=== PATIENT | female | born 1945 | race Caucasian/White ===

== ENCOUNTER → 2017-01-01 | Outpatient (CLI) | payer MEDICARE, BC ==
--- NOTE | 2017-01-01 09:57 | REP ---
UNILATERAL MAMMOGRAM LEFT BREAST: HISTORY: Right breast cancer and mastectomy. COMPARISON: 12/31/2015 as well as multiple other prior studies. Moderate fibroglandular tissue is unchanged in the left breast. No new mass or suspicious clusters of microcalcifications are seen. A metallic clip is again seen at about the 12 o'clock position of the left breast. There are scattered tiny stable calcifications. IMPRESSION: ACR 2 benign stable mammogram left breast in this patient status post right mastectomy. Suggest followup mammogram in 1 year. This mammogram was interpreted with the aid of an FDA-approved computer-aided detection system. The patient states she/he had a clinical breast exam in 11/2016. The patient letter being requested is M1. Signed by Brendon Lundberg MD 01/01/2017 04:41 P
== END ==
LOC: M RAD 08:37
PROVIDERS: ATTEND Family Medicine
DX: Z12.31 Encounter for screening mammogram for malignant neoplasm of breast (principal); Z85.3 Personal history of malignant neoplasm of breast

== ENCOUNTER → 2018-01-03 | Outpatient (CLI) | payer MEDICARE, BC | LOC: M RAD 10:07 | DX: Z12.31 Encounter for screening mammogram for malignant neoplasm of breast (principal) | CPT/HCPCS: 77067 ==

== ENCOUNTER 2018-12-01 12:28 | Day surgery (SDC) | payer MEDICARE, BC ==
[~2018-12-01] VITALS: Ht 160 cm; Wt 66.2 kg
[~2018-12-01 12:28] MED LIST: ATOR1TAB21 PO; BISO10TA3 PO; EQL50TAB2 PO; FISH1000 PO; LISI10TA4 PO; METF10004 PO; MULTCAP PO; OMEP20CA4 PO; VITA-122 PO
[2018-12-01] MEDS ORDERED: PROPOFOL 200 MG/20 ML VIAL As Ordered ONE (12:44)
[2018-12-01] MEDS ORDERED: LIDOCAINE 2% INJ 100 MG/5 ML SDV (FOR ANES.) As Ordered ONE (12:44)
[2018-12-01] MEDS: NS 1,000 ML IV ONE (13:00)
--- NOTE | 2018-12-01 13:36 | ROOR ---
Patient Name: Sandra Moeller Procedure Date: 12/01/2018 1:08 PM Date of : 1945 Age: 73 Room: [facility] Gender: Female Note Status: Finalized Procedure: Colonoscopy Indications: Positive Cologuard test Providers: Tee Morales Jr, MD Referring MD: TD ROSE Requesting Provider: Medicines: Propofol per Anesthesia Complications: No immediate complications. Procedure: Pre-Anesthesia Assessment: - Prior to the procedure, a History and Physical was performed, and patient medications and allergies were reviewed. The patient is competent. The risks and benefits of the procedure and the sedation options and risks were discussed with the patient. All questions were answered and informed consent was obtained. Patient identification and proposed procedure were verified by the physician and the nurse in the pre-procedure area and in the procedure room. Mental Status Examination: alert and oriented. Airway Examination: normal oropharyngeal airway and neck mobility. Respiratory Examination: clear to auscultation. CV Examination: normal. ASA Grade Assessment: II - A patient with mild systemic disease. After reviewing the risks and benefits, the patient was deemed in satisfactory condition to undergo the procedure. The anesthesia plan was to use moderate sedation / analgesia (conscious sedation). Immediately prior to administration of medications, the patient was re-assessed for adequacy to receive sedatives. The heart rate, respiratory rate, oxygen saturations, blood pressure, adequacy of pulmonary ventilation, and response to care were monitored throughout the procedure. The physical status of the patient was re-assessed after the procedure. The Colonoscope was introduced through the anus and advanced to the cecum, identified by appendiceal orifice and ileocecal valve. The colonoscopy was performed without difficulty. The patient tolerated the procedure well. The quality of the bowel preparation was adequate. Findings: The descending colon, transverse colon, ascending colon, cecum, appendiceal orifice and ileocecal valve appeared normal. A few small-mouthed diverticula were found in the sigmoid colon. Five polyps were found in the rectum, recto-sigmoid colon and transverse colon. The polyps were medium in size. These polyps were removed with a hot snare. Resection was complete, but the polyp tissue was only partially retrieved. Non-bleeding external and internal hemorrhoids were found during retroflexion. The hemorrhoids were moderate. Impression: - The descending colon, transverse colon, ascending colon, cecum, appendiceal orifice and ileocecal valve are normal. - Diverticulosis in the sigmoid colon. - Five medium polyps in the rectum, at the recto-sigmoid colon and in the transverse colon, removed with a hot snare. Complete resection. Partial retrieval. - Non-bleeding external and internal hemorrhoids. Recommendation: - Repeat colonoscopy in 3 - 5 years for surveillance based on pathology results. Tee Morales MD Tee Morales Jr, MD 12/01/2018 1:35:50 PM Electronically signed by Tee Morales Jr, MD Number of Addenda: 0 Note Initiated On: 12/01/2018 1:08 PM Estimated Blood Loss: Estimated blood loss: none.
[2018-12-01 14:05] VITALS: BP 133/64
== END 2018-12-01 14:07 | disposition home or self-care (01) ==
LOC: M OPP 12:28
PROVIDERS: ATTEND Surgery
DX: R19.5 Other fecal abnormalities (principal); K64.8 Other hemorrhoids; K62.1 Rectal polyp; D12.7 Benign neoplasm of rectosigmoid junction; D12.3 Benign neoplasm of transverse colon; K57.30 Diverticulosis of large intestine without perforation or abscess without bleeding; Z79.84 Long term (current) use of oral hypoglycemic drugs; F17.210 Nicotine dependence, cigarettes, uncomplicated

== ENCOUNTER → 2019-01-06 | Outpatient (CLI) | payer MEDICARE, BC ==
[~2019-01-06] MED LIST changes: -BISO10TA3 PO; +BISO10TA4 PO; +OMEP1CAP73 PO; -OMEP20CA4 PO
--- NOTE | 2019-01-06 13:35 | REP ---
UNILATERAL MAMMOGRAM, LEFT BREAST WITH 3D TOMOSYNTHESIS: HISTORY: Right breast cancer and mastectomy, 2002. Family history of breast cancer in mother at age 55. MLO and CC views of left breast performed with 3D tomosynthesis. Comparison made with multiple prior exams, most recently 01/03/2018. There is no change in the parenchymal pattern of the left breast with moderate heterogeneous fibroglandular tissue again noted. There is no new mass or architectural distortion. Scattered calcifications in the left breast are stable. Metallic clip is again seen in the upper left breast from a prior benign stereotactic biopsy in 2014. IMPRESSION: BIRADS 1: BI-RADS/ACR category 1 mammogram. Negative Mammogram. ACR 1 negative mammogram left breast in this patient status post right mastectomy. Suggest followup mammogram in 1 year. This mammogram was interpreted with the aid of an FDA-approved computer-aided detection system. The patient states she/he had a clinical breast exam in 12/2018. The patient letter being requested is M1. Electronically Signed by Brendon Lundberg MD 01/08/2019 10:51 P
== END ==
LOC: M RAD 12:32
PROVIDERS: ATTEND Physician Assistant
DX: Z12.31 Encounter for screening mammogram for malignant neoplasm of breast (principal)

== ENCOUNTER → 2020-01-09 | Outpatient (CLI) | payer MEDICARE, BC ==
--- NOTE | 2020-01-09 10:38 | REPMRS ---
Patient History The patient states she has not had a clinical breast exam in over a year. Family history of breast cancer at age 55 in mother, unknown cancer at age 23 in mother, endometrial cancer at age 50 in mother, unknown cancer at age 51 in sister. Benign radio exam breast specimen of the left breast, July 09, 2014. Benign stereotatic loc for ea lesion of the left breast, July 09, 2014. Malignant mastectomy of the right breast, 2001. Chemotherapy, 2001. Took hormonal contraceptives for 20 years. Took unspecified hormones for 1 year. Digital Woman Screen Mammo: January 09, 2020 - Exam #: [id number] Bilateral CC and MLO view(s) were taken. Technologist: Rupal Parekh, Technologist Prior study comparison: January 06, 2019, bilateral digital mammo screening bilat, performed at [facility]. January 03, 2018, bilateral digital mammo screening bilat, performed at [facility]. January 01, 2017, bilateral digital mammo screening bilat, performed at [facility]. May 22, 2014, left breast digital mammo diagnostic unilateral, performed at [facility]. FINDINGS: There are scattered fibroglandular densities. There has been no change in the appearance of the left breast parenchyma in the interval since the prior examination. No new mass, architectural distortion, or microcalcific grouping has developed. The previously biopsied grouping of microcalcifications shows an increase in number of calcifications. However this grouping was sampled in 2014 with benign histologic result. No suspicious finding. 3-D tomosynthesis shows no additional findings. Assessment: BI-RADS/ACR category 2 mammogram. Benign Findings. Recommendation Routine screening mammogram in 1 year. This patient's Lifetime Breast Cancer RIsk is estimated at %. This mammogram was interpreted with the aid of an FDA-approved computer-aided dectection system. Electronically Signed By: Rob Taylor MD 01/09/20 [id number]
== END ==
LOC: M WHC 07:48
PROVIDERS: ATTEND Physician Assistant
DX: Z12.31 Encounter for screening mammogram for malignant neoplasm of breast (principal); Z85.3 Personal history of malignant neoplasm of breast

== ENCOUNTER → 2020-02-06 | Outpatient (CLI) | payer MEDICARE, BC ==
--- NOTE | 2020-02-16 07:11 | REP ---
LEFT WRIST SERIES HISTORY: Fall with pain. FINDINGS: Four views of the left wrist were performed. There was no evidence of acute fracture, dislocation, or intrinsic bone disease. Joint spaces are unremarkable. IMPRESSION: No evidence of fracture or dislocation. MTDD
--- NOTE | 2020-02-16 07:15 | REP ---
BILATERAL THUMB SERIES: EIGHT VIEWS HISTORY: Contusion of both thumbs. Injury in a fall one week ago, persistent pain. FINDINGS: Four views of each thumb are presented. These demonstrate no evidence of fracture or subluxation. Bones, joints, and soft tissues are unremarkable. There is minimal osteoarthritic change. IMPRESSION: Minimal osteoarthritic changes. No fracture or other acute bony abnormality. MTDD
== END ==
LOC: M WUC 09:38
PROVIDERS: ATTEND Physician Assistant
DX: S60.212A Contusion of left wrist, initial encounter (principal); S60.012A Contusion of left thumb without damage to nail, initial encounter; S60.011A Contusion of right thumb without damage to nail, initial encounter; X58.XXXA Exposure to other specified factors, initial encounter; Y92.9 Unspecified place or not applicable

== ENCOUNTER → 2021-01-10 | Outpatient (CLI) | payer MEDICARE, BC ==
[~2021-01-10] MED LIST changes: +LISI10TA22 PO; -LISI10TA4 PO
--- NOTE | 2021-01-10 12:18 | REPMRS ---
Patient History The patient states she has not had a clinical breast exam in over a year. Patient is postmenopausal, has history of cancer in the right breast at age 55, and had previous chemotherapy at age 55. Family history of breast cancer at age 55 in mother, unknown cancer at age 23 in mother, endometrial cancer at age 50 in mother, unknown cancer at age 51 in sister. Benign radio exam breast specimen of the left breast, July 09, 2014. Benign stereotatic loc for ea lesion of the left breast, July 09, 2014. Malignant mastectomy of the right breast, 2001. Chemotherapy, 2001. Took hormonal contraceptives for 20 years. Took unspecified hormones for 1 year. Patient states no breast complaints today. Patient has signed MRS History Sheet. Digital Woman Screen Mammo: January 10, 2021 - Exam #: [id number] Bilateral CC and MLO view(s) were taken. Technologist: Razia Cary, Technologist Prior study comparison: January 09, 2020, bilateral digital woman screen mammo performed at [facility]. January 06, 2019, bilateral digital mammo screening bilat, performed at [facility]. January 03, 2018, bilateral digital mammo screening bilat, performed at [facility]. May 22, 2014, left breast digital mammo diagnostic unilateral, performed at [facility]. FINDINGS: There are scattered fibroglandular densities. The previously noted grouping of calcifications in the left breast is again seen unchanged from recent mammography. A needle biopsy marker clip is seen just superior to this. Prior sampling in 2014. There has been no change in the appearance of the left breast parenchyma in the interval since the prior examination. No mass, architectural distortion, or microcalcific grouping has developed. No suspicious finding. 3-D tomosynthesis shows no additional findings. Assessment: BI-RADS/ACR category 2 mammogram. Benign Findings. Recommendation Routine screening mammogram in 1 year. This mammogram was interpreted with the aid of an FDA-approved computer-aided dectection system. Electronically Signed By: Rob Taylor MD 01/10/21 121
== END ==
LOC: M WHC 11:15
PROVIDERS: ATTEND Physician Assistant
DX: Z12.31 Encounter for screening mammogram for malignant neoplasm of breast (principal)

== ENCOUNTER → 2021-09-02 | Outpatient (CLI) | payer MEDICARE, BC ==
[~2021-09-02] MED LIST changes: -BISO10TA4 PO; +BISO1TAB19 PO
== END ==
LOC: M SOG 15:58
PROVIDERS: ATTEND Physician Assistant
DX: M79.645 Pain in left finger(s) (principal)

== ENCOUNTER → 2021-10-03 | Outpatient (CLI) | payer MEDICARE, BC | LOC: M LABSMTC 09:17 | PROVIDERS: ATTEND Anesthesiology | DX: Z01.812 Encounter for preprocedural laboratory examination (principal); Z20.822 Contact with and (suspected) exposure to COVID-19 ==

== ENCOUNTER → 2021-10-10 | Outpatient (CLI) | payer MEDICARE, BC | LOC: M LABSMTC 10:15 | PROVIDERS: ATTEND Anesthesiology | DX: Z01.812 Encounter for preprocedural laboratory examination (principal); Z20.822 Contact with and (suspected) exposure to COVID-19 ==

== ENCOUNTER 2021-10-15 07:48 | Day surgery (SDC) | payer MEDICARE, BC ==
[~2021-10-15] VITALS: Ht 160 cm; Wt 68.0 kg
[~2021-10-15 07:48] MED LIST changes: +LIDOCAINE W/EPINEPHRINE 1% 20ML VIAL XX ONE; +SODIUM BICARBONATE 8.4% INJ 50MEQ 50 ML VIAL XX ONE
[2021-10-15] MEDS ORDERED: BACITRACIN OINTMENT 30GM TUBE As Ordered ONE (09:55)
[2021-10-15 10:35] VITALS: BP 147/63
== END 2021-10-15 10:50 | disposition home or self-care (01) ==
LOC: M SDC 07:48
PROVIDERS: ATTEND Orthopaedic Surgery Hand Surgery
DX: M65.4 Radial styloid tenosynovitis [de Quervain] (principal); I10 Essential (primary) hypertension; E11.9 Type 2 diabetes mellitus without complications; E78.00 Pure hypercholesterolemia, unspecified; Z85.3 Personal history of malignant neoplasm of breast; Z90.11 Acquired absence of right breast and nipple; F17.210 Nicotine dependence, cigarettes, uncomplicated; Z79.899 Other long term (current) drug therapy; Z79.84 Long term (current) use of oral hypoglycemic drugs

== ENCOUNTER → 2022-01-12 | Outpatient (CLI) | payer MEDICARE, BC ==
[~2022-01-12] MED LIST changes: -LIDOCAINE W/EPINEPHRINE 1% 20ML VIAL XX ONE; +OMEP-173 PO; -SODIUM BICARBONATE 8.4% INJ 50MEQ 50 ML VIAL XX ONE; +VITMTA PO
== END ==
LOC: M LABSMTC 10:16
PROVIDERS: ATTEND Anesthesiology
DX: Z01.818 Encounter for other preprocedural examination (principal); Z11.52 Encounter for screening for COVID-19

== ENCOUNTER → 2022-01-13 | Outpatient (CLI) | payer MEDICARE, BC | LOC: M WHC 10:19 | PROVIDERS: ATTEND Physician Assistant | DX: Z12.31 Encounter for screening mammogram for malignant neoplasm of breast (principal); Z85.3 Personal history of malignant neoplasm of breast; Z90.11 Acquired absence of right breast and nipple ==

== ENCOUNTER 2022-01-16 10:44 | Day surgery (SDC) | payer MEDICARE, BC ==
[~2022-01-16] VITALS: Ht 160 cm; Wt 65.3 kg
[~2022-01-16 10:44] MED LIST changes: +NS 1,000 ML IV ONE
[2022-01-16] MEDS ORDERED: propofoL 200 MG/20 ML VIAL As Ordered ONE ×2 (12:19→12:38)
[2022-01-16] MEDS ORDERED: LIDOCAINE 2% 100MG/5ML SDV (FOR ANES.) As Ordered ONE (12:19)
[2022-01-16 13:13] VITALS: BP 121/58
== END 2022-01-16 13:25 | disposition home or self-care (01) ==
LOC: M OPP 10:44
PROVIDERS: ATTEND Surgery
DX: Z12.11 Encounter for screening for malignant neoplasm of colon (principal); Z86.010 Personal history of colon polyps; K63.5 Polyp of colon; K57.30 Diverticulosis of large intestine without perforation or abscess without bleeding; I10 Essential (primary) hypertension; E78.00 Pure hypercholesterolemia, unspecified; E11.9 Type 2 diabetes mellitus without complications; F17.200 Nicotine dependence, unspecified, uncomplicated; Z80.3 Family history of malignant neoplasm of breast; Z80.49 Family history of malignant neoplasm of other genital organs; Z80.51 Family history of malignant neoplasm of kidney; Z85.51 Personal history of malignant neoplasm of bladder; Z92.21 Personal history of antineoplastic chemotherapy; Z79.02 Long term (current) use of antithrombotics/antiplatelets; Z79.84 Long term (current) use of oral hypoglycemic drugs; Z79.899 Other long term (current) drug therapy; Z88.8 Allergy status to other drugs, medicaments and biological substances

== ENCOUNTER → 2023-01-15 | Outpatient (CLI) | payer MEDICARE, BC ==
[~2023-01-15] MED LIST changes: -NS 1,000 ML IV ONE
== END ==
LOC: M WHC 11:23
PROVIDERS: ATTEND Physician Assistant
DX: Z12.31 Encounter for screening mammogram for malignant neoplasm of breast (principal); Z85.3 Personal history of malignant neoplasm of breast

== ENCOUNTER 2023-06-11 09:03 | Emergency (ER) | payer MEDICARE, BC ==
[~2023-06-11] VITALS: Ht 160 cm; Wt 73.3 kg
[2023-06-11] MEDS ORDERED: LIDOCAINE W/EPINEPHRINE 1% 20ML VIAL SC ONE (11:30)
[2023-06-11 11:47] LABS: BASO % 0.3 % (0.0-1.0); EOS # 0.1 10^3/uL (0.0-0.5); EOS % 0.6 % (0.0-3.0); HEMATOCRIT 33.9 % (36.0-47.0); HEMOGLOBIN 11.6 g/dl (12.0-15.5); LYMPH % 16.7 % (24.0-44.0); MEAN CORPUSCULAR HEMOGLOBIN 32.2 pg (27.0-33.0); MEAN CORPUSCULAR HGB CONC 34.2 g/dl (32.0-36.5); MEAN CORPUSCULAR VOLUME 94.2 fl (80.0-96.0); MONO # 0.8 10^3/uL (0.0-0.8); MONO % 6.4 % (2.0-8.0); NEUTROPHILS # 8.9 10^3/uL (1.5-8.5); NEUTROPHILS % 75.7 % (36.0-66.0); PLATELET COUNT, AUTOMATED 346 10^3/uL (150-450); WHITE BLOOD COUNT 11.8 10^3/uL (4.0-10.0)
[2023-06-11] MEDS ORDERED: DOXY-443 PO ×2 (11:55→12:56)
[2023-06-11 12:10] VITALS: BP 153/64; TEMP 96.8; O2SAT 99
[2023-06-11 12:19] LABS: BLOOD UREA NITROGEN 12 MG/DL (9-23); CALCIUM LEVEL 9.1 MG/DL (8.3-10.6); CARBON DIOXIDE LEVEL 28 MMOL/L (20-31); CHLORIDE LEVEL 103 MMOL/L (98-107); CREATININE FOR GFR 0.82 MG/DL (0.55-1.30); GLOMERULAR FILTRATION RATE > 60.0 (>39); GLUCOSE, FASTING 138 MG/DL (74-106); POTASSIUM SERUM 4.7 MMOL/L (3.5-5.1); SODIUM LEVEL 137 MMOL/L (136-145)
== END 2023-06-11 12:11 | disposition home or self-care (01) ==
LOC: M ED 09:03
DX: L02.214 Cutaneous abscess of groin (principal); L03.314 Cellulitis of groin; E11.9 Type 2 diabetes mellitus without complications; I10 Essential (primary) hypertension; E78.5 Hyperlipidemia, unspecified; K21.9 Gastro-esophageal reflux disease without esophagitis; Z79.84 Long term (current) use of oral hypoglycemic drugs; Z79.899 Other long term (current) drug therapy

== ENCOUNTER → 2023-07-27 | Outpatient (CLI) | payer MEDICARE, BC ==
[~2023-07-27] MED LIST changes: +DOXY-443 PO
== END ==
LOC: M WUC 11:13
PROVIDERS: ATTEND Physician Assistant
DX: M54.50 Low back pain, unspecified (principal)

== ENCOUNTER → 2024-01-20 | Outpatient (CLI) | payer MEDICARE, BC ==
[~2024-01-20] MED LIST changes: +DOXY-323 PO; -DOXY-443 PO
== END ==
LOC: M WHC 13:55
PROVIDERS: ATTEND Physician Assistant
DX: Z12.31 Encounter for screening mammogram for malignant neoplasm of breast (principal); Z85.3 Personal history of malignant neoplasm of breast
CPT/HCPCS: 77067; G0279

== ENCOUNTER → 2025-01-22 | Outpatient (CLI) | payer MEDICARE, BC ==
[~2025-01-22] MED LIST changes: -DOXY-323 PO; +DOXY-441 PO; -EQL50TAB2 PO; +VITA1TAB82 PO
== END ==
LOC: M WHC 11:26
PROVIDERS: ATTEND Physician Assistant
DX: Z12.31 Encounter for screening mammogram for malignant neoplasm of breast (principal); R92.2 Inconclusive mammogram; Z85.3 Personal history of malignant neoplasm of breast; Z90.11 Acquired absence of right breast and nipple
CPT/HCPCS: 77067; G0279

== ENCOUNTER → 2025-02-01 | Outpatient (CLI) | payer MEDICARE, BC | LOC: M WHC 10:20 | PROVIDERS: ATTEND Physician Assistant | DX: Z85.3 Personal history of malignant neoplasm of breast (principal); Z12.31 Encounter for screening mammogram for malignant neoplasm of breast | CPT/HCPCS: 77065; G0279 ==